=== PATIENT | female | born 1965 | race Caucasian/White ===

== ENCOUNTER 2016-04-30 23:23 | Emergency (ER) | payer BC ==
--- NOTE | 2016-05-01 00:20 | ERNOTE ---
Headache ER HPI - Narrative Date of Service: 05/01/16 - PCP FREYA ELLIS - General Presenting Symptoms: headache Time Seen by Provider: 05/01/16 00:19 - Immun/Allergies/Home Medications Immunizations: IMMUNIZATION HX Immunizations Up to Date No History of Influenza Vaccine No Hx Pneumococcal Vaccination No Allergies/Adverse Reactions: Allergies No Known Allergies Allergy (Verified 04/30/16 23:41) Home Medications: HOME MEDICATIONS DULoxetine HCL [Cymbalta] 30 mg PO DAILY 04/30/16 [Last Taken Unknown] Lisinopril/Hydrochlorothiazide [Lisinopril-Hctz 10-12.5 mg Tab] 1 tab PO DAILY 04/30/16 [Last Taken Unknown] Meloxicam 7.5 mg PO PRN PRN 04/30/16 [Last Taken Unknown] busPIRone HCL [Buspar] 15 mg PO BID 04/30/16 [Last Taken Unknown] Methocarbamol 750 mg PO BID PRN #20 tablet 05/01/16 [Last Taken Unknown] - History of Present Illness Narrative: patient states she has left sided morales started this afternoon and has not improved despite rest, ibuprofen, and other analgesics prescribed by her PCP. Patient states these headaches are worsened by a neck / head injury she had in which she injured left side of her neck, that seems to always be the side that the morales starts in. Patient is concerned about infection as well, running low grade fever and left ear pain. Date (Duration): 04/29/16 Time (Timing): 08:00 Activity at onset: other - none Context Headache: Present: new onset Severity Maximum: Present: severe Severity-Currently: Present: severe Headache frequency: Present: frequent headaches, similar to previous headache Modifying Factors - (Improves): Reports: rest, immobilization, cold therapy, medication Modifying Factors - (Worsens): Reports: movement, exposure to light, other - infection Associated Symptoms: Reports: other - ear pain on left Exacerbated by:: Reports: light, movement, position Prior Treament: Denies: treated by physician, recently hospitalized Review of Systems - Review of Systems Constitutional: Present: no symptoms reported EYE: Present: no symptoms reported ENT: Present: See HPI, ear pain Respiratory: Present: no symptoms reported Cardiology: Present: no symptoms reported Gastrointestinal/Abdominal: Present: no symptoms reported Genitourinary: Present: no symptoms reported Musculoskeletal: Present: no symptoms reported Skin: Present: no symptoms reported Neurological: Present: See HPI, headache, pre-existing deficit Endocrine: Present: no symptoms reported Hematologic/Lymphatic: Present: no symptoms reported Psych: Present: no symptoms reported All Other Systems: All systems neg except as marked - Patient's Past Medical History Patient History - Medical: Anxiety, Depression, Migraines Patient History - Cardiac/Respiratory: No pertinent hx Patient History - Cancer: No Hx of Cancer Patient History - Surgical Procedures: LMP (females 10-50): Menopausal - Family History Family History:: no untoward family reactions to anesthesia, no familial bleeding tendencies, no family history of clotting disorders, no family history of premature - Social History Living Situations: home Smoking Status: Current every day smoker Alcohol Use: none Drug Use: none Physical Exam - Physical Exam General Appearance: Present: wd/wn, alert, mild distress Eye Exam: Normal inspection: bilateral, PERRL: bilateral, EOMI: bilateral Ears, Nose, Throat: Present: normal ENT inspection, abnormal TM (L) - erythema Neck: Present: normal inspection Respiratory: Present: no respiratory distress Cardiovascular/Chest: Present: regular rate, rhythm, no murmur, normal peripheral pulses Gastrointestinal/Abdominal: Present: normal bowel sounds, nontender, nondistended Rectal Exam: Present: nontender, normal rectal tone Back Exam: Present: normal inspection, normal range of motion, no CVA tenderness , vertebral tenderness - left side of cervical spine Extremity Exam: Present: normal inspection, non-tender, no edema, normal range of motion Neurological Exam: Present: alert, oriented, normal mood/affect, no motor/ sensory deficits, 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 Absent: motor weakness DTR: N=norm/NB=norm/brisk/A=abs/DD=dull/dimin/HC=hyperactive: Bicep (R): Normal , Bicep (L): Normal, Tricep (R): Normal, Tricep (L): Normal Skin Exam: Present: normal color, warm/dry Lymphatic Exam: Present: no adenopathy ED Progress - Date and Time Seen: Date and Time: 05/01/16 00:37 patient will get flexeril po for tonight but rx for Robaxin in am. - Vital Signs Patient's Vital Signs:: I have reviewed the patient's vital signs. 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
[2016-05-01] MEDS ORDERED: KETOROLAC TROMETHAMINE 60 MG/2 ML VIAL IM ONE ×2 (00:25→00:26)
[2016-05-01] MEDS ORDERED: CYCLOBENZAPRINE HCL 10 MG TABLET PO ONE (00:35)
[2016-05-01] MEDS ORDERED: CYCLOBENZAPRINE HCL 10 MG TABLET ONE (00:40)
[2016-05-01 07:37] VITALS: BP 130/82
== END 2016-05-01 00:50 | disposition home or self-care (01) ==
LOC: ER 23:23
DX: H65.92 Unspecified nonsuppurative otitis media, left ear (principal); G44.51 Hemicrania continua; F17.210 Nicotine dependence, cigarettes, uncomplicated; F41.9 Anxiety disorder, unspecified; F32.9 Major depressive disorder, single episode, unspecified

== ENCOUNTER 2016-07-06 19:24 | Emergency (ER) | payer BC ==
--- OUTSIDE RECORDS SUMMARY | 2016-07-06 21:59 | XMS REPORT | Continuity of Care Document ---
:1965 Author Organization [place] [address] Care Team Providers Name Role Phone Unavailable Primary Care Provider Unavailable Source Comments This disclosure is being made pursuant to the [employer] program and maynot contain all information available regarding this patient.[facility] Active Allergies and Adverse Reactions Not on File Current Medications Be aware that medications may not be up to date as of this document. Alwaysverify current medications with the patient. Not on file Active Problems Not on file Social History Tobacco Use Types Packs/Day Years Used Date Never Assessed Plan of Care Health Maintenance Due Date Last Done Comments Retired-Pertussis Vaccine Adult 12/29/1986 Retired-Tetanus Vaccine Adult 12/29/1986 Pap Smear 12/29/1988 Mammogram 2007 Retired-INFLUENZA VACCINE 12/10/2014 Results from Last 3 Months Not on file
--- OUTSIDE RECORDS SUMMARY | 2016-07-06 22:00 | XMS REPORT | Continuity of Care Document ---
:1965 Author Organization [facility] ([facility]) Address [address] [place] [address] Phone [phone] Care Team Providers Name Role Phone Provider, No-Primary Care Primary Care Provider Unavailable Source Comments This disclosure is being made pursuant to the Care Everywhere program, applicable federal and state laws, and may not contain all informaitonavailable regarding this patient.[facility] ([facility]) Active Allergies and Adverse Reactions Not on File Current Medications Not on file Active Problems Not on file Social History Tobacco Use Types Packs/Day Years Used Date Never Assessed Plan of Care Health Maintenance Due Date Last Done Comments Hepatitis B Vaccine (1 of 3 - Primary 1967 Series) Tdap Vaccine 12/29/1978 Lipid Disorder Screening 12/29/1985 MMR Vaccine 12/29/1985 Td Vaccine 12/29/1985 Cervical Cancer Screening 12/29/1997 Mammogram 02/13/2015 02/13/2014, 02/13/2014 Influenza Vaccine: Seasonal (#1) 11/10/2015 Results from Last 3 Months Not on file
[2016-07-06 22:52] VITALS: BP 135/89
== END 2016-07-06 21:54 | disposition home or self-care (01) ==
LOC: ER 19:24
DX: M25.551 Pain in right hip (principal)

== ENCOUNTER 2017-02-11 20:13 | Emergency (ER) | payer BC ==
[2017-02-11 20:41] VITALS: BP 115/79
[2017-02-11] MEDS ORDERED: ONDANSETRON 4 MG TAB.RAPDIS ONE (21:07)
[2017-02-11] MEDS ORDERED: ONDANSETRON 4 MG TAB.RAPDIS PO ONE (21:09)
--- NOTE | 2017-02-18 22:07 | ERNOTE ---
Medical Problem HPI - General Chief Complaint: Nausea/Vomiting Time Seen by Provider: 02/11/17 20:55 Source: patient Exam Limitations: no limitations - Immun/Allergies/Home Medications Immunizations: IMMUNIZATION HX Immunizations Up to Date Yes History of Influenza Vaccine No Hx Pneumococcal Vaccination No Allergies/Adverse Reactions: Allergies No Known Allergies Allergy (Verified 02/11/17 20:41) Home Medications: HOME MEDICATIONS Lisinopril/Hydrochlorothiazide [Lisinopril-Hctz 10-12.5 mg Tab] 1 tab PO DAILY 04/30/16 [Last Taken Unknown] busPIRone HCL [Buspar] 15 mg PO BID 04/30/16 [Last Taken Unknown] Venlafaxine HCl [Effexor] 75 mg PO DAILY 02/11/17 [Last Taken Unknown] - History of Present History Narrative: pt presents for nausea and vomiting for 24 hours. The vomiting has since stopped but she still feels a little nauseated. She denies any fevers or chills. she states she feels much better now but she wants a note for work Review of Systems - Review of Systems Constitutional: Present: no symptoms reported EYE: Present: no symptoms reported ENT: Present: no symptoms reported Respiratory: Present: no symptoms reported Cardiology: Present: no symptoms reported Gastrointestinal/Abdominal: Present: See HPI Genitourinary: Present: no symptoms reported Musculoskeletal: Present: no symptoms reported Skin: Present: no symptoms reported - Patient's Past Medical History Patient History - Medical: Anxiety, Depression, Migraines Patient History - Cardiac/Respiratory: Hypertension Patient History - Cancer: No Hx of Cancer Patient History - Surgical Procedures: , Total Hip Replacement Patient History - Other: None LMP (females 10-50): Menopausal - Social History Living Situations: home Abuse History: No History of abuse Psych History: Hx of Anxiety, Hx of Depression, Current tx/ever been on anti- depressants or anti-anxiety meds Smoking Status: Current every day smoker Alcohol Use: none Drug Use: none - Immunizations Immunizations Up to Date: Yes Hx Pneumococcal Vaccination: No History of Influenza Vaccine: No Physical Exam - Physical Exam General Appearance: Present: wd/wn, alert, no apparent distress Head Exam: Present: normal inspection Ears, Nose, Throat: Present: normal ENT inspection, normal pharynx Neck: Present: normal inspection, nontender, supple Respiratory: Present: no respiratory distress, normal breath sounds, no accessory muscle use, chest nontender, lungs clear Cardiovascular/Chest: Present: regular rate, rhythm, no murmur, normal peripheral pulses Gastrointestinal/Abdominal: Present: normal bowel sounds, nontender, nondistended, soft, no organomegaly. 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 - Progress/Reassessment Chief Complaint: Nausea/Vomiting Plan - Plan Plan: This patient's symptoms have almost completely resolved. She was given ondansetron for nausea and given a work note for work. She is stable and appropriate to be discharged home with a diagnosis of viral gastroenteritis Departure Clinical Impression: Viral gastroenteritis - Departure Disposition: Home self-care Condition: Good Referrals: Freya Ly ARNP [Primary Care Provider] -
== END 2017-02-11 21:10 | disposition home or self-care (01) ==
LOC: ER 20:13
DX: A08.4 Viral intestinal infection, unspecified (principal); F17.200 Nicotine dependence, unspecified, uncomplicated

== ENCOUNTER 2017-02-20 17:31 | Emergency (ER) | payer BC ==
--- NOTE | 2017-02-20 17:58 | ERNOTE ---
Date of Service: 02/20/17 Time Seen by Provider: 02/20/17 17:41 Stated Complaint: COUGH Presenting Symptoms:: cough Source: patient, RN notes reviewed Exam Limitations: no limitations Immunizations: IMMUNIZATION HX Immunizations Up to Date Yes History of Influenza Vaccine No Hx Pneumococcal Vaccination No Allergies/Adverse Reactions: Allergies No Known Allergies Allergy (Verified 02/11/17 20:41) Home Medications: HOME MEDICATIONS Lisinopril/Hydrochlorothiazide [Lisinopril-Hctz 10-12.5 mg Tab] 1 tab PO DAILY 04/30/16 [Last Taken Unknown] busPIRone HCL [Buspar] 15 mg PO BID 04/30/16 [Last Taken Unknown] - History of Present Ilness Narrative: Ceci is a 51-year-old female who presents for upper respiratory symptoms that began the day before yesterday. She denies any sick contacts. She reports that she has felt hot and cold but is unsure if she is actually had a fever. She has not taken anything for her symptoms today. She is a smoker. Date (Duration): 02/18/17 Frequency/Possible Cause: Reports: unknown cause Prior Treatment: Reports: recently seen Review of Systems - Review of Systems Constitutional: Present: recent illness, fatigue, malaise EYE: Absent: eye pain, eye discharge ENT: Present: nose congestion, sore throat, other - hoarseness. Absent: ear pain, nasal drainage Respiratory: Present: cough. Absent: shortness of breath, wheezing Cardiology: Absent: chest pain, palpitations Gastrointestinal/Abdominal: Absent: nausea, vomiting, abdominal pain Genitourinary: Present: no symptoms reported Musculoskeletal: Present: muscle pain. Absent: joint pain Skin: Absent: rash, lesions Neurological: Present: headache. Absent: dizziness/light-headedness Endocrine: Present: no symptoms reported Hematologic/Lymphatic: Absent: easy bruising, easy bleeding Psych: Present: no symptoms reported - Patient's Past Medical History Patient History - Medical: Anxiety, Depression, Migraines Patient History - Cardiac/Respiratory: Hypertension Patient History - Cancer: No Hx of Cancer Patient History - Surgical Procedures: , Total Hip Replacement Patient History - Other: None LMP (females 10-50): Menopausal - Social History Living Situations: home Abuse History: No History of abuse Psych History: Hx of Anxiety, Hx of Depression, Current tx/ever been on anti- depressants or anti-anxiety meds Smoking Status: Current every day smoker Have you smoked in the past 12 months: Yes Do you dip or chew tobacco: No Alcohol Use: none Drug Use: none - Immunizations Immunizations Up to Date: Yes Hx Pneumococcal Vaccination: No History of Influenza Vaccine: No Physical Exam - Physical Exam General Appearance: Present: wd/wn, alert, no apparent distress, obese Head Exam: Present: normal inspection Eye Exam: Normal inspection: bilateral Ears, Nose, Throat: Present: nasal congestion, normal pharynx, other - Hoarse voice. Absent: abnormal TM (R), abnormal TM (L), sinus pain/drainage Neck: Present: normal inspection, nontender, supple, full range of motion Respiratory: Present: no respiratory distress, normal breath sounds, no accessory muscle use, lungs clear Cardiovascular/Chest: Present: regular rate, rhythm, no murmur, normal peripheral pulses Extremity Exam: Present: normal inspection, normal range of motion, no edema Neurological Exam: Present: alert, oriented, normal mood/affect, no motor/ sensory deficits Skin Exam: Present: normal color, warm/dry ED Progress - Vital Signs Patient's Vital Signs:: I have reviewed the patient's vital signs. Vital Signs: Vital Signs 02/20/17 17:33 Temperature 36.6 C Pulse Rate 95 Respiratory 18 Rate Blood Pressure 133/83 O2 Sat by Pulse 99 Oximetry - Progress/Reassessment Chief Complaint: Upper Respiratory Symptoms Progress:: Unchanged Departure Clinical Impression: Upper respiratory infection, acute - Departure Disposition: Home self-care Condition: Good Instructions: Upper Respiratory Infection, Adult, [id number], Form - Excuse from Work, School, or Physical Activity Additional Instructions: Rest and drink plenty of fluids Nasal saline spray or a sinus rinse for congestion Tylenol and/or ibuprofen for pain or fever Stop smoking Return or follow-up with your doctor if symptoms persist longer than 7-10 days Referrals: Freya Ly ARNP [Primary Care Provider] -
[2017-02-20 18:14] VITALS: BP 136/80
== END 2017-02-20 18:00 | disposition home or self-care (01) ==
LOC: ER 17:31
DX: J06.9 Acute upper respiratory infection, unspecified (principal); F17.200 Nicotine dependence, unspecified, uncomplicated